=== PATIENT | female | born 1940 | race Caucasian/White ===

== ENCOUNTER 2019-05-13 13:10 | Outpatient (CLI) | payer MEDICARE, MEDICAID ==
[2019-05-13] MEDS ORDERED: LOSA50TA64 PO (13:46)
[2019-05-13] MEDS ORDERED: FOLI-62 PO (13:46)
[2019-05-13] MEDS ORDERED: METF-950 PO (13:46)
[2019-05-13] MEDS ORDERED: LACT1CAP75 PO (13:46)
[2019-05-13] MEDS ORDERED: HYDR50TA3 PO (13:46)
[2019-05-13] MEDS ORDERED: ASCO500C7 PO (13:46)
[2019-05-13] MEDS ORDERED: CHOL200077 PO (13:46)
[2019-05-13] MEDS ORDERED: ALBU8.5H8 INH (13:46)
[2019-05-13 14:03] LABS: BASOPHILS # (AUTO) 0.1 X10'3 (0-0.2); BASOPHILS % (AUTO) 0.7 % (0-1); EOSINOPHILS # (AUTO) 0.1 X10'3 (0-0.9); EOSINOPHILS % (AUTO) 1.3 % (0-6); LYMPHOCYTES # (AUTO) 2.4 X10'3 (1.1-4.8); LYMPHOCYTES % (AUTO) 29.9 % (21-51); MEAN CORPUSCULAR HEMOGLOBIN 29.7 PG (27.0-31.0); MEAN CORPUSCULAR HGB CONC 33.7 g/dL (33.0-36.5); MEAN CORPUSCULAR VOLUME 88.1 FL (78-98); MONOCYTES # (AUTO) 0.7 X10'3 (0-0.9); MONOCYTES % (AUTO) 8.3 % (2-12); NEUTROPHILS # (AUTO) 4.7 X10'3 (1.8-7.7); NEUTROPHILS % (AUTO) 59.8 % (42-75); PRE OP HEMATOCRIT 38.3 % (35.0-45.0); PRE OP HEMOGLOBIN 12.9 g/dL (12.0-16.0); PRE OP PLATELET COUNT 176 X10'3 (140-440); RED BLOOD COUNT 4.35 X10'6 (4.20-5.60); RED CELL DISTRIBUTION WIDTH 14.7 % (11.5-14.5)
[2019-05-13 14:09] LABS: CLARITY,URINE SLIGHTLY CLOUDY (Clear); COLOR,URINE YELLOW (Yellow); GLUCOSE, URINE NEGATIVE (Neg); KETONES,URINE NEGATIVE (Neg); LEUKOCYTE ESTERASE ,URINE SMALL (Neg); NITRITES, URINE POSITIVE (Neg); OCCULT BLOOD,URINE NEGATIVE (Neg); PH,URINE 6.5 (4.8-8.0); PROTEIN,URINE NEGATIVE (Neg); UROBILINOGEN,URINE 0.2 E.U/dL (0.2-1.0)
[2019-05-13 14:19] LABS: ALBUMIN/GLOBULIN RATIO 1.1 (1.1-1.5); ALKALINE PHOSPHATASE 64 IU/L (46-116); BLOOD UREA NITROGEN 28 MG/DL (7-18); CALCIUM 9.2 MG/DL (8.5-10.1); CHLORIDE 107 MMOL/L (99-107); PRE OP ALT 26 U/L (30-65); PRE OP ANION GAP 4 (8-16); PRE OP AST 22 U/L (10-37); PRE OP BILIRUB, TOTAL 0.4 MG/DL (0.0-1.0); PRE OP GLUCOSE 116 MG/DL (70-104); PRE OP POTASSIUM 3.9 MMOL/L (3.4-5.1); PRE OP SODIUM 143 MMOL/L (135-145); TOTAL CARBON DIOXIDE 31.7 MMOL/L (24-32); TOTAL PROTEIN 7.7 G/DL (6.4-8.2); eGFR 54 ML/MIN
[2019-05-13 14:22] LABS: UA COLLECTION TYPE CLN CATCH MIDSTREAM
[2019-05-13 14:23] LABS: BACTERIA,URINE 4+ /HPF (Neg); MUCUS STRANDS NONE SEEN /LPF (Neg); RBC,URINE NONE SEEN /HPF (0-2); SQUAMOUS EPITHELIAL CELL,UR FEW /LPF (FEW); WBC,URINE 50-100 /HPF (0-4)
[2019-05-13 14:24] LABS: WBC CLUMPS,URINE FEW /HPF (NEGATIVE)
== END 2019-05-13 23:59 | disposition home or self-care (01) ==
LOC: PRE-OP 13:10 → EDSTATUS 05-18 09:15
PROVIDERS: ATTEND Surgery
DX: Z01.812 Encounter for preprocedural laboratory examination (principal); L72.3 Sebaceous cyst; R01.1 Cardiac murmur, unspecified; E11.9 Type 2 diabetes mellitus without complications; R60.0 Localized edema; Z91.14 Patient's other noncompliance with medication regimen; I10 Essential (primary) hypertension
CPT/HCPCS: 36415; 80053; 81001; 85025; 87077; 87088; 87186